=== PATIENT | female | born 1940 | race Caucasian/White ===

== ENCOUNTER 2016-05-20 16:33 | Emergency (ER) | payer MEDICARE, BC ==
--- NOTE | 2016-05-20 17:22 | ERNOTE ---
Chest Pain/Cardiac HPI Date of Service: 05/20/16 Chief Complaint: Palpitations Time Seen by Provider: 05/20/16 17:02 Source: patient Exam Limitations: no limitations Immunizations: IMMUNIZATION HX Immunizations Up to Date Yes History of Influenza Vaccine Yes Hx Pneumococcal Vaccination No Allergies/Adverse Reactions: Allergies amlodipine Adverse Reaction (Mild, Verified 05/31/15 10:14) LOWER EXTREMITY SWELLING Home Medications: HOME MEDICATIONS ALPRAZolam [Xanax] 0.5 mg PO TID PRN 05/17/15 [Last Taken 02/13/16] Carbidopa/Levodopa 25/100 [Sinemet 25/100] 1 tab PO HS 05/17/15 [Last Taken ] Levothyroxine Sodium [Synthroid] 125 mcg PO DAILY 05/17/15 [Last Taken 02/13/16] Olmesartan/Hydrochlorothiazide [Benicar Hct 40-25 mg Tablet] 1 each PO DAILY 06/27 [Last Taken 02/13/16] Potassium Chloride [K-Dur] 20 meq PO DAILY 05/17/15 [Last Taken 02/13/16] Glucosamine/Chondroitin Sulf A [Glucosamine Chondroitin Cap] 2 each PO BID 05/18 [Last Taken 02/13/16] Multivitamins [Multivitamin [place]ita] 1 cap PO DAILY 05/18/15 [Last Taken 02/13/16 ] Metoprolol Succinate 25 mg PO DAILY 06/02/15 [Last Taken 02/13/16] Rivaroxaban [Xarelto] 10 mg PO HS 02/13/16 [Last Taken 02/12/16] Narrative: felt some palpitations yesterday. [place] a bit lightheaded while putting out laundry to dry today. Now feels well. Has a hx of paroxysmal AF. On Xarelto and is compliant. No excess caffeine or alcohol. No weight gain or edema. no SOB or CP. Sees Dr. Johnson. Date (Duration): 05/19/16 Timing: constant Severity/Quality: mild Location: other - no pain Chest Pain Radiation: no radiation Activities at Onset: other - usual daily activities. Nothing unusual. Modifying Factors - Improves: Present: rest Modifying Factors - Worsens: Present: exercise Nitro Today/Relief: no nitro taken today Aspirin Treatment Today: no aspirin today Prior Treatment: Reports: recently seen - was at Jane Resendiz's office and sent to ER. Review of Systems - Review of Systems Constitutional: Present: fatigue. Absent: fever, chills, weight loss EYE: Present: no symptoms reported Respiratory: Present: no symptoms reported Cardiology: Present: no symptoms reported Gastrointestinal/Abdominal: Present: no symptoms reported Genitourinary: Present: no symptoms reported Musculoskeletal: Present: no symptoms reported Skin: Present: no symptoms reported Neurological: Present: no symptoms reported Psych: Present: no symptoms reported - Patient's Past Medical History Patient History - Medical: Arthritis, Cataracts Patient History - Cardiac/Respiratory: Atrial Fibrillation, Hypertension Patient History - Cancer: No Hx of Cancer Patient History - Surgical Procedures: Cataracts, D & C, T & A, Other Patient History - Other: None - Family History Mother Family History - Medical: , Other Father Family History - Medical: , Renal Disease, Other Family History - Cardiac/Respiratory: Pneumonia - Social History Living Situations: significant other Abuse History: No History of abuse Psych History: No pertinent hx Smoking Status: Never smoker Do you dip or chew tobacco: No Alcohol Use: occasionally Drug Use: none - Immunizations Immunizations Up to Date: Yes Hx Pneumococcal Vaccination: No History of Influenza Vaccine: Yes Physical Exam - Physical Exam General Appearance: Present: wd/wn, alert, no apparent distress Neck: Present: normal inspection, nontender Respiratory: Present: no respiratory distress, normal breath sounds, no accessory muscle use, lungs clear Cardiovascular/Chest: Present: no murmur, irregularly irregular. Absent: tachycardia Extremity Exam: Present: normal inspection, no edema Neurological Exam: Present: alert, oriented, normal mood/affect Skin Exam: Present: normal color, warm/dry. Absent: diaphoresis ED Progress - Vital Signs Patient's Vital Signs:: I have reviewed the patient's vital signs. Vital Signs: Vital Signs 05/20/16 16:39 Temperature 36.0 C L Pulse Rate 65 Respiratory 16 Rate Blood Pressure 120/80 O2 Sat by Pulse 95 Oximetry - EKG EKG: atrial fibrillation - with RVR 108, nonspecific ST T wave changes EKG read: Reviewed by me - Progress/Reassessment Chief Complaint: Palpitations Plan - Plan Plan: Home. Rest. No stimulants. Continue regular medications. Return if any chest pain, SOB, significant weight gain, or fainting. Departure - Departure Clinical Impression: Atrial fibrillation, Palpitations Disposition: Home self-care Condition: Good Instructions: Atrial Fibrillation, [id number] Additional Instructions: Home. Rest. No stimulants. Continue regular medications. Return if any chest pain, SOB, significant weight gain, or fainting. Referrals: Jane Resendiz, [employer]ICE OPERATOR [Primary Care Provider] -
[2016-05-20 17:28] VITALS: BP 115/73
== END 2016-05-20 17:26 | disposition home or self-care (01) ==
LOC: ER 16:33
DX: I48.91 Unspecified atrial fibrillation (principal); R00.2 Palpitations; Z79.01 Long term (current) use of anticoagulants; I10 Essential (primary) hypertension